=== PATIENT | female | born 1970 | race Caucasian/White ===

== ENCOUNTER 2017-02-21 15:18 | Emergency (ER) | payer OTHER ==
--- NOTE | ~2017-02-21 | CR17 ---
[facility] A Service of [facility] RADIOLOGY TEXT RESULTS PATIENT: HOWARD ENAMORADO LOCATION: SED : 66 UNIT #: [id number] AGE: [address]: TABBY COLLADO SEX: F ORDER DR: [id number] [address] [address] [id number] E MR#: [id number] Acc #: [id number] NAME: HOWARD ENAMORADO. : 1970 SEX: F STUDY DATE/TIME: 02/21/2017 15:48 UNIT: SED ROOM: STUDY DESCRIPTION: CR Ankle 2 Views Lt Attending Physician: Tabby Collado A.P.R.N. Ordering Physician: Tabby Collado A.P.R.N. Primary Care Physician: Katia Oconnor A.P.R.N. MEDICAL IMAGING REPORT This report is preliminary unless electronic signature is present. EXAM Left ankle, 2 views. DATE OF EXAM 02/21/2017 INDICATIONS 46-year-old female with pain and swelling laterally that began 2 hours prior to arrival, slipped on a stick, and heard a pop. REPORT 2 views. COMPARISON STUDIES No comparisons. FINDINGS There is lateral soft tissue swelling. There are degenerative changes in the ankle joint. There is a fracture of the base of the fifth metatarsal. It is incompletely visualized on this ankle series. IMPRESSION 1. Base of 5th metatarsal fracture incompletely characterized on this ankle series. A foot series could be performed for further assessment. 2. Soft tissue swelling of the lateral malleolus and degenerative change in the ankle joint. STAT * RESULT Dictated by... [facility] A Service [facility] RADIOLOGY TEXT RESULTS PATIENT: HOWARD ENAMORADO LOCATION: SED : 66 UNIT #: [id number] AGE: [address]: TABBY COLLADO SEX: F ORDER DR: Kevin Warner M.D. THIS IS AN ELECTRONICALLY VERIFIED REPORT Kevin Warner M.D. at 02/21/2017 4:12 PM JIMMIE/iker TD: 02/21/2017 16:07 JOB #: [id number] MEDICAL IMAGING REPORT Page 1 of 1
--- NOTE | ~2017-02-21 | CR123 ---
[facility]. [facility] A Service of [facility] RADIOLOGY TEXT RESULTS PATIENT: HOWARD ENAMORADO LOCATION: SED : 66 UNIT #: [id number] AGE: [address]: TABBY COLLADO SEX: F ORDER DR: [id number] [place] [id number] E MR#: [id number] Acc #: [id number] NAME: HOWARD ENAMORADO : 1970 SEX: F STUDY DATE/TIME: 02/21/2017 16:10 UNIT: SED ROOM: STUDY DESCRIPTION: CR Foot 2 Views Lt Attending Physician: Tabby Collado A.P.R.N. Ordering Physician: Tabby Collado A.P.R.N. Primary Care Physician: Katia Oconnor A.P.R.N. MEDICAL IMAGING REPORT This report is preliminary unless electronic signature is present. Left foot, 2 views. HISTORY Pain and swelling after injury today. FINDINGS 2 views of the left foot demonstrate transverse fracture through the base of the fifth metatarsal, nondisplaced, corresponding to a similar finding on ankle x-ray reported separately. Minimal degenerative changes at the first MTP joint. No additional fracture. Remainder of the bone alignment is satisfactory. Dictated by... Ankur Rao M.D. THIS IS AN ELECTRONICALLY VERIFIED REPORT Ankur Rao M.D. at 02/21/2017 10:49 PM SANCHOL/iker TD: 02/21/2017 17:50 JOB #: [id number] MEDICAL IMAGING REPORT Page 1 of 1
[2017-02-21] MEDS ORDERED: PRILOSEC (15:20)
[2017-02-21] MEDS ORDERED: VITAMIN B-250 MG (15:21)
== END 2017-02-21 17:25 | disposition home or self-care (01) ==
LOC: SED 15:18
DX: S92.352A Displaced fracture of fifth metatarsal bone, left foot, initial encounter for closed fracture (principal); S93.402A Sprain of unspecified ligament of left ankle, initial encounter; Z98.890 Other specified postprocedural states; Z88.8 Allergy status to other drugs, medicaments and biological substances; W01.0XXA Fall on same level from slipping, tripping and stumbling without subsequent striking against object, initial encounter; Y92.009 Unspecified place in unspecified non-institutional (private) residence as the place of occurrence of the external cause
CPT/HCPCS: 29515; 29540; 73600; 73620; 99283